=== PATIENT | female | born 1980 | race African-American/Black ===

== ENCOUNTER 2017-01-21 20:34 | Emergency (ER) | payer OTHER ==
[2017-01-21 21:16] VITALS: BMI 32.3
--- NOTE | 2017-01-21 22:14 | PDOC ---
[id number] 36 year old female with significant medical hx of recent hernia repair (approximately one month ago) who is presenting to the ED with nausea and abdominal pain for the past 24 hours. The patient complains of constant abdominal pain, the worst location at her naval, but also diffusely spread that is accompanied with some gas and nausea. She describes her pain as intense gas pain that feels as if she has to use the restroom but is unable to go. The patient denies any fever, chills, vomiting or diarrhea. Her last BM was this morning and it was reported normal. The patient had her hernia repair done at [facility]. She was given pain medication but states she hasnt taken it in a couple of weeks. Surgical Hx: , liposuction, hernia repair Social Hx: current tobacco smoker, occasional ETOH use <Rama Bravo - Last Filed: 01/21/17 23:53> <China Stout - Last Filed: 01/22/17 03:43> <Jorge Hough - Last Filed: 01/29/17 01:30> - General Chief Complaint: Pain Stated Complaint: ABDOMINAL PAIN Time Seen by Provider: 01/21/17 22:11 Past History <Rama Bravo - Last Filed: 01/21/17 23:53> <China Stout - Last Filed: 01/22/17 03:43> - Surgical History Abdominal Surgery: Yes (TUMMY ROSALVA/hernia repair 2016) - Psycho/Social/Smoking Cessation Hx Anxiety: No Suicidal Ideation: No Smoking History: Current every day smoker Have you smoked in the past 12 months: Yes Number of Cigarettes Smoked Daily: 5 Information on smoking cessation initiated: No Hx Alcohol Use: No Drug/Substance Use Hx: No Substance Use Type: None <Jorge Hough - Last Filed: 01/29/17 01:30> - Past Medical History Allergies/Adverse Reactions: Allergies Allergy/AdvReac Type Severity Reaction Status Date / Time No Known Allergies Allergy Verified 01/21/17 21:15 Home Medications: Ambulatory Orders Ibuprofen 800 mg PO TID #30 tablet 01/22/17 Oxycodone HCl/Acetaminophen [Percocet 5-325 mg Tablet] 1 - 2 tab PO Q6H #20 tablet MDD 4 01/22/17 Review of Systems - Review of Systems Comments:: 01/21/17 22:43 CONSTITUTIONAL: No fever, no chills, no fatigue EYES: No visual changes ENT: No ear pain, no sore throat CARDIOVASCULAR: No chest pain, no palpitations RESPIRATORY: No cough, no SOB GI: Abdominal pain, nausea. No vomiting, no constipation, no diarrhea GENITOURINARY: No dysuria, no frequency, no hematuria MUSKULOSKELETAL: No backpain, no joint pain, no myalgias SKIN: No rash NEURO: No headache <Rama Bravo - Last Filed: 01/21/17 23:53> *Physical Exam - Vital Signs Last Vital Signs Temp Pulse Resp BP Pulse Ox 98.3 F 95 H 21 138/75 98 01/21/17 21:13 01/21/17 21:13 01/21/17 21:13 01/21/17 21:13 01/21/17 21:13 - Physical Exam Comments: 01/21/17 23:54 CONSTITUTIONAL: Well-appearing; well-nourished; in no apparent distress HEAD: Normocephalic; atraumatic EYES: PERRL; EOM intact ENMT: External appears normal; normal oropharynx NECK: Supple; non-tender; no cervical lymphadenopathy CARD: Normal S1, S2; no murmurs, rubs, or gallops RESP: Normal chest excursion with respiration; breath sounds clear and equal bilaterally; no wheezes, rhonchi, or rales ABD: Mild periubmilical tenderness, distended, bowel sounds decreased; no palpable organomegaly EXT: Normal ROM in all four extremities; non-tender to palpation; distal pulses intact SKIN: Warm, dry, no rash NEURO: No focal neurological deficiencies. <Rama Bravo - Last Filed: 01/21/17 23:53> - Vital Signs Last Vital Signs Temp Pulse Resp BP Pulse Ox 98.3 F 95 H 21 138/75 98 01/21/17 21:13 01/21/17 21:13 01/21/17 21:13 01/21/17 21:13 01/21/17 21:13 <China Stout - Last Filed: 01/22/17 03:43> - Vital Signs Last Vital Signs Temp Pulse Resp BP Pulse Ox 98.3 F 95 H 21 138/75 98 01/21/17 21:13 01/21/17 21:13 01/21/17 21:13 01/21/17 21:13 01/21/17 21:13 <Jorge Hough - Last Filed: 01/29/17 01:30> ED Treatment Course - LABORATORY CBC & Chemistry Diagram: 01/21/17 22:30 01/21/17 22:30 <Rama Bravo - Last Filed: 01/21/17 23:53> - LABORATORY CBC & Chemistry Diagram: 01/21/17 22:30 01/21/17 22:30 - ADDITIONAL ORDERS Additional order review: Laboratory Results 01/21/17 01/21/17 01/21/17 23:30 22:30 22:30 INR Sodium 140 Potassium 4.2 Chloride 102 Carbon Dioxide 30 Anion Gap 8 BUN 13 Creatinine 0.9 Creat Clearance w eGFR > 60 Random Glucose 78 D Calcium 9.3 Total Bilirubin 0.4 D AST 14 L ALT 20 Alkaline Phosphatase 101 Total Protein 7.8 Albumin 4.0 Urine Color Straw Urine Appearance Clear Urine pH 6.0 Ur Specific Deputy 1.012 Urine Protein Negative Urine Glucose (UA) Negative Urine Ketones Negative Urine Blood Negative Urine Nitrite Negative Urine Bilirubin Negative Urine Urobilinogen Negative Ur Leukocyte Esterase Negative Urine HCG, Qual Negative Blood Type A POSITIVE Antibody Screen Negative 01/21/17 22:30 INR 1.03 Sodium Potassium Chloride Carbon Dioxide Anion Gap BUN Creatinine Creat Clearance w eGFR Random Glucose Calcium Total Bilirubin AST ALT Alkaline Phosphatase Total Protein Albumin Urine Color Urine Appearance Urine pH Ur Specific Deputy Urine Protein Urine Glucose (UA) Urine Ketones Urine Blood Urine Nitrite Urine Bilirubin Urine Urobilinogen Ur Leukocyte Esterase Urine HCG, Qual Blood Type Antibody Screen 01/21/17 22:30 RBC 5.03 MCV 83.7 MCHC 32.7 RDW 14.1 MPV 8.7 Neutrophils % 70.9 Lymphocytes % 21.6 D Monocytes % 5.7 Eosinophils % 1.4 D Basophils % 0.4 - RADIOLOGY Radiograph Interpretation: 01/22/17 03:43 Exam: Contrast-enhanced CT abdomen and pelvis Reviewed by Imaging artificial insemination technician: Findings: Breast implants are noted. The lung bases are clear. The upper abdominal viscera have a normal appearance. Slight nodular thickening of the left adrenal gland is noted. The adrenal glands are otherwise unremarkable. The kidneys have a normal appearance and enhance symmetrically. There is no evidence of urinary tract obstruction. The gastrointestinal tract does not appear obstructed. No thickened or dilated bowel is seen. The appendix has a normal appearance. There is no mesenteric infiltration. There is no free fluid. The uterus is in a neutral position. No adnexal masses are seen. The right adnexa is prominent with complex fluid seen in the adnexa and cul-de-sac tip within the result of a ruptured cyst. The urinary bladder is unremarkable. No abdominal or pelvic adenopathy is seen. No lytic or blastic destructive osseous lesions are seen. The patient appears to be status post abdominoplasty. Impression: Prominent right adnexa with complex fluid in the adnexa and cul-de-sac system with a ruptured hemorrhagic cyst. No inflammatory process identified in the abdomen or pelvis. No abdominal mass, adenopathy or collection seen. - Medications Given in the ED: ED Medications Discontinued Medications Generic Name Dose Route Start Last Admin Trade Name Freq PRN Reason Stop Dose Admin Acetaminophen 1,000 mg 01/21/17 22:25 01/21/17 23:04 Ofirmev Injection - IVPB 01/21/17 22:26 1,000 mg ONCE ONE Administration Hydromorphone HCl 0.5 mg 01/22/17 01:14 01/22/17 01:25 Dilaudid Injection - IVPB 01/22/17 01:15 0.5 mg ONCE ONE Administration Famotidine/Sodium Chloride 50 mls @ 100 mls/hr 01/21/17 22:25 01/21/17 23:04 Pepcid 20 Mg Premixed Ivpb - IVPB 01/21/17 22:54 100 mls/hr ONCE ONE Administration Sodium Chloride 1,000 mls @ 1,000 mls/hr 01/21/17 22:25 01/21/17 23:03 Normal Saline - IV 01/21/17 23:24 1,000 mls/hr ASDIR STA Administration <China Stout - Last Filed: 01/22/17 03:43> - LABORATORY CBC & Chemistry Diagram: 01/21/17 22:30 01/21/17 22:30 <Jorge Hough - Last Filed: 01/29/17 01:30> *DC/Admit/Observation/Transfer - Attestations Scribe Attestion: 01/21/17 22:45 Documentation prepared by Rama Bravo, acting as medical billing associate for Jorge Hough MD. <Rama Bravo - Last Filed: 01/21/17 23:53> <China Stout - Last Filed: 01/22/17 03:43> - Attestations Physician Attestion: 01/22/17 01:43 Patient is a 36-year-old female who presents with atraumatic periumbilical abdominal pain for weeks after undergoing umbilical hernia repair. In the ER, patient is awake and alert, with mild periumbilical tenderness to deep palpation without guarding or rebound. CBC reveals minimal leukocytosis with a normal differential. CMP is within normal limit. Urinalysis reveals no evidence of pyuria. Abdominal series x-ray reveals large amount of stool throughout the colon. Given persistent pain, will obtain CT with by mouth and IV contrast. If no evidence of acute pathology is noted, will discharge with surgical follow- up. Will endorse to Dr. carrera for final disposition. <Jorge Hough - Last Filed: 01/29/17 01:30> Diagnosis at time of Disposition: Ovarian cyst Qualifiers: Laterality: right Qualified Code(s): N83.201 - Unspecified ovarian cyst, right side - Discharge Dispostion Disposition: HOME Condition at time of disposition: Stable - Prescriptions Prescriptions: Ibuprofen 800 mg PO TID #30 tablet Oxycodone HCl/Acetaminophen [Percocet 5-325 mg Tablet] 1 - 2 tab PO Q6H #20 tablet MDD 4 - Referrals Referrals: Tobias Ozuna MD [Staff Physician] - - Patient Instructions Printed Discharge Instructions: DI for Ovarian Cyst
[2017-01-21] MEDS ORDERED: ACETAMINOPHEN 1000 MG/100 ML VIAL (NON FORMULARY) IVPB ONE (22:25)
[2017-01-21] MEDS ORDERED: SODIUM CHLORIDE 1,000 ML IV STA (22:25)
[2017-01-21] MEDS ORDERED: FAMOTIDINE 20 MG/50 ML IVPB 50 ML IVPB ONE ×2 (22:25→22:37)
[2017-01-21] MEDS ORDERED: ACETAMINOPHEN INJECTION 100 ML IVPB ONE (22:37)
[2017-01-21 23:23] LABS: BASOPHIL 0.4 % (0-2.0); EOSINOPHIL 1.4 % (0-4.5); MCH 27.4 pg (25.7-33.7); MCHC 32.7 g/dl (32.0-36.0); MEAN CELL VOLUME 83.7 fl (80-96); MEAN PLT VOLUME 8.7 fl (7.5-11.1); NEUTROPHILS 70.9 % (42.8-82.8); PLATELET COUNT 241 K/MM3 (134-434); RDW 14.1 % (11.6-15.6)
[2017-01-21 23:46] LABS: ANION GAP 8 (8-16); BILIRUBIN,TOTAL 0.4 mg/dL (0.2-1.0); CALCIUM 9.3 mg/dL (8.5-10.1); CO2 30 mmol/L (21-32); CREATININE 0.9 mg/dL (0.55-1.02); GLUCOSE,RANDOM 78 mg/dL (74-106); SGOT/AST 14 U/L (15-37); SGPT/ALT 20 U/L (12-78); TOT PROT 7.8 g/dl (6.4-8.2)
[2017-01-21 23:47] LABS: ALK PHOS 101 U/L (45-117)
[2017-01-22] LABS: URINE APPEARANCE CLEAR; URINE BILIRUBIN NEGATIVE (NEGATIVE); URINE BLOOD NEGATIVE (NEGATIVE); URINE COLOR STRAW; URINE GLUCOSE (UA) NEGATIVE (NEGATIVE); URINE KETONE NEGATIVE (NEGATIVE); URINE LEUK ESTERASE NEGATIVE (NEGATIVE); URINE NITRITE NEGATIVE (NEGATIVE); URINE PROTEIN NEGATIVE (NEGATIVE); URINE UROBILINOGEN NEGATIVE E.U./dl (0.2-1.0)
[2017-01-22 00:06] LABS: INR 1.03 (0.82-1.09); PROTHROMBIN TIME (PATIENT) 11.3 SEC (9.98-11.88)
[2017-01-22] MEDS ORDERED: HYDROmorphone HCL CARPU-JECT 1 MG/1 ML DISP.SYRIN IVPB ONE (01:14)
[2017-01-22] MEDS ORDERED: HYDROmorphone HCL CARPU-JECT 1 MG/1 ML DISP.SYRIN ONE ×2 (01:23→03:56)
[2017-01-22] MEDS ORDERED: KETOROLAC TROMETHAMINE 30 MG/1 ML VIAL IVPUSH ONE (03:50)
[2017-01-22] MEDS ORDERED: HYDROmorphone HCL CARPU-JECT 1 MG/1 ML DISP.SYRIN IVPUSH ONE (03:51)
[2017-01-22] MEDS ORDERED: KETOROLAC TROMETHAMINE 30 MG/1 ML VIAL ONE (03:56)
[2017-01-22 04:35] VITALS: BP 134/78; PULSE 84; TEMP 98.2
--- NOTE | 2017-01-22 05:53 | PDOC ---
*Physical Exam - Vital Signs Last Vital Signs Temp Pulse Resp BP Pulse Ox 98.2 F 84 16 134/78 97 01/22/17 04:05 01/22/17 04:05 01/22/17 04:05 01/22/17 04:05 01/22/17 04:05 ED Treatment Course - LABORATORY CBC & Chemistry Diagram: 01/21/17 22:30 01/21/17 22:30 - ADDITIONAL ORDERS Additional order review: Laboratory Results 01/21/17 01/21/17 01/21/17 23:30 22:30 22:30 INR Sodium 140 Potassium 4.2 Chloride 102 Carbon Dioxide 30 Anion Gap 8 BUN 13 Creatinine 0.9 Creat Clearance w eGFR > 60 Random Glucose 78 D Calcium 9.3 Total Bilirubin 0.4 D AST 14 L ALT 20 Alkaline Phosphatase 101 Total Protein 7.8 Albumin 4.0 Urine Color Straw Urine Appearance Clear Urine pH 6.0 Ur Specific [place] 1.012 Urine Protein Negative Urine Glucose (UA) Negative Urine Ketones Negative Urine Blood Negative Urine Nitrite Negative Urine Bilirubin Negative Urine Urobilinogen Negative Ur Leukocyte Esterase Negative Urine HCG, Qual Negative Blood Type A POSITIVE Antibody Screen Negative 01/21/17 22:30 INR 1.03 Sodium Potassium Chloride Carbon Dioxide Anion Gap BUN Creatinine Creat Clearance w eGFR Random Glucose Calcium Total Bilirubin AST ALT Alkaline Phosphatase Total Protein Albumin Urine Color Urine Appearance Urine pH Ur Specific [place] Urine Protein Urine Glucose (UA) Urine Ketones Urine Blood Urine Nitrite Urine Bilirubin Urine Urobilinogen Ur Leukocyte Esterase Urine HCG, Qual Blood Type Antibody Screen 01/21/17 22:30 RBC 5.03 MCV 83.7 MCHC 32.7 RDW 14.1 MPV 8.7 Neutrophils % 70.9 Lymphocytes % 21.6 D Monocytes % 5.7 Eosinophils % 1.4 D Basophils % 0.4 - Medications Given in the ED: ED Medications Discontinued Medications Generic Name Dose Route Start Last Admin Trade Name Freq PRN Reason Stop Dose Admin Acetaminophen 1,000 mg 01/21/17 22:25 01/21/17 23:04 Ofirmev Injection - IVPB 01/21/17 22:26 1,000 mg ONCE ONE Administration Hydromorphone HCl 0.5 mg 01/22/17 01:14 01/22/17 01:25 Dilaudid Injection - IVPB 01/22/17 01:15 0.5 mg ONCE ONE Administration Hydromorphone HCl 1 mg 03/23/17 03:51 01/22/17 03:55 Dilaudid Injection - IVPUSH 01/22/17 03:52 1 mg ONCE ONE Administration Famotidine/Sodium Chloride 50 mls @ 100 mls/hr 01/21/17 22:25 01/21/17 23:04 Pepcid 20 Mg Premixed Ivpb - IVPB 01/21/17 22:54 100 mls/hr ONCE ONE Administration Sodium Chloride 1,000 mls @ 1,000 mls/hr 01/21/17 22:25 01/21/17 23:03 Normal Saline - IV 01/21/17 23:24 1,000 mls/hr ASDIR STA Administration Ketorolac Tromethamine 30 mg 01/22/17 03:50 01/22/17 03:55 Toradol Injection - IVPUSH 01/22/17 03:51 30 mg ONCE ONE Administration *DC/Admit/Observation/Transfer Diagnosis at time of Disposition: Ovarian cyst Qualifiers: Laterality: right Qualified Code(s): N83.201 - Unspecified ovarian cyst, right side - Discharge Dispostion Disposition: HOME Condition at time of disposition: Stable Admit: No - Prescriptions Prescriptions: Ibuprofen 800 mg PO TID #30 tablet Oxycodone HCl/Acetaminophen [Percocet 5-325 mg Tablet] 1 - 2 tab PO Q6H #20 tablet MDD 4 - Referrals Referrals: Tobias Ozuna MD [Staff Physician] - - Patient Instructions Printed Discharge Instructions: DI for Ovarian Cyst
== END 2017-01-22 06:13 | disposition home or self-care (01) ==
LOC: JER 20:34 → SUPCPDRO 20:34 → JER 01-22 06:13
PROC: 3E033NZ Introduction of Analgesics, Hypnotics, Sedatives into Peripheral Vein, Percutaneous Approach (ICD-10-PCS; principal; 2017-01-21)
PROC: 3E033GC Introduction of Other Therapeutic Substance into Peripheral Vein, Percutaneous Approach (ICD-10-PCS; 2017-01-21)
PROC: 3E0333Z Introduction of Anti-inflammatory into Peripheral Vein, Percutaneous Approach (ICD-10-PCS; 2017-01-21)
PROC: 3E0337Z Introduction of Electrolytic and Water Balance Substance into Peripheral Vein, Percutaneous Approach (ICD-10-PCS; 2017-01-21)
DX: N83.201 Unspecified ovarian cyst, right side (principal); F17.210 Nicotine dependence, cigarettes, uncomplicated
CPT/HCPCS: 36415; 74020-TC; 74177-TC; 80053; 81003; 84703; 85025; 85610; 86850; 86900; 86901; 87086; 99283-25

== ENCOUNTER 2018-07-07 03:38 | Emergency (ER) | payer OTHER ==
[2018-07-07 05:13] VITALS: BP 130/81; PULSE 64; TEMP 99.3; BMI 34.9
[2018-07-07] MEDS ORDERED: IBUPROFEN 600 MG TABLET (FP) PO ONE ×2 (06:18→06:51)
--- NOTE | 2018-07-07 06:29 | PDOC ---
History of Present Illness <Vanita Colin - Last Filed: 07/07/18 07:51> - General History Source: Patient - History of Present Illness Initial Comments: 07/07/18 06:53 37 year old Complaining of left knee pain reports that she twisted knee as she fell on to the ground. Patient is able to leg raise, difficulty with weightbearing. No deformity noted point tenderness to the lateral inner aspect of the knee. No past medical history <Magnolia Cano - Last Filed: 07/08/18 04:54> <Layla Lacy - Last Filed: 07/10/18 07:18> - General Chief Complaint: Pain Stated Complaint: PAIN,SWELLING LT KNEE Time Seen by Provider: 07/07/18 05:49 Past History <Vanita Colin - Last Filed: 07/07/18 07:51> - Past Medical History COPD: No - Surgical History Abdominal Surgery: Yes (TUMMY TUCK/hernia repair 2017) - Suicide/Smoking/Psychosocial Hx Smoking History: Current every day smoker Have you smoked in the past 12 months: Yes Number of Cigarettes Smoked Daily: 6 Information on smoking cessation initiated: No Hx Alcohol Use: No Drug/Substance Use Hx: No Substance Use Type: None <Magnolia Cano - Last Filed: 07/08/18 04:54> <Layla Lacy - Last Filed: 07/10/18 07:18> - Past Medical History Allergies/Adverse Reactions: Allergies Allergy/AdvReac Type Severity Reaction Status Date / Time No Known Allergies Allergy Verified 07/07/18 04:59 Home Medications: Ambulatory Orders NK [No Known Home Medication] 04/19/18 Review of Systems - Review of Systems Able to Perform ROS?: Yes Is the patient limited Korean proficient: No Musculoskeletal: Yes: Other (knee pain) <Magnolia Cano - Last Filed: 07/08/18 04:54> *Physical Exam - Vital Signs Last Vital Signs Temp Pulse Resp BP Pulse Ox 99.3 F 64 20 130/81 98 07/07/18 04:59 07/07/18 04:59 07/07/18 04:59 07/07/18 04:59 07/07/18 04:59 <Vanita Colin - Last Filed: 07/07/18 07:51> - Vital Signs Last Vital Signs Temp Pulse Resp BP Pulse Ox 99.3 F 64 20 130/81 98 07/07/18 04:59 07/07/18 04:59 07/07/18 04:59 07/07/18 04:59 07/07/18 04:59 - Physical Exam General Appearance: Yes: Appropriately Dressed Musculoskeletal: positive: Normal Inspection, Decreased Range of Motion, Other ( able to leg raise) Extremity: positive: Normal Capillary Refill, Normal Inspection, Normal Range of Motion Integumentary: positive: Normal Color, Dry, Warm Neurologic: positive: Fully Oriented, Alert <Magnolia Cano - Last Filed: 07/08/18 04:54> - Vital Signs Last Vital Signs Temp Pulse Resp BP Pulse Ox 99.3 F 64 20 130/81 98 07/07/18 04:59 07/07/18 04:59 07/07/18 04:59 07/07/18 04:59 07/07/18 04:59 <Layla Lacy - Last Filed: 07/10/18 07:18> ED Treatment Course - ADDITIONAL ORDERS Additional order review: Laboratory Results 07/07/18 06:20 Urine HCG, Qual Negative - Medications Given in the ED: ED Medications Discontinued Medications Generic Name Dose Route Start Last Admin Trade Name Freq PRN Reason Stop Dose Admin Ibuprofen 600 mg 07/07/18 06:18 07/07/18 06:20 Motrin - PO 07/07/18 06:19 600 mg ONCE ONE Administration <Vanita Colin - Last Filed: 07/07/18 07:51> - RADIOLOGY Radiology Studies Ordered: Category Date Time Status KNEE 3 POS-LEFT [RAD] Stat Radiology 07/07/18 05:56 Ordered <Magnolia Cano - Last Filed: 07/08/18 04:54> - Medications Given in the ED: ED Medications Discontinued Medications Generic Name Dose Route Start Last Admin Trade Name Freq PRN Reason Stop Dose Admin Ibuprofen 600 mg 07/07/18 06:18 07/07/18 06:20 Motrin - PO 07/07/18 06:19 600 mg ONCE ONE Administration <Layla Lacy - Last Filed: 07/10/18 07:18> Progress Note - Progress Note Progress Note: A: left knee pain P: urine xray pain control patient signed out to Allie DOUGHERTY. pending Xray <Magnolia Cano - Last Filed: 07/08/18 04:54> Medical Decision Making - Medical Decision Making 07/07/18 07:44 Knee xray read as neg for fx or acute pathology. However, there is mention of possible foreign body at site of proximal tibia. Patient has no open wounds at this time and denies any history of any previous history of knee/leg trauma or foreign body. Kody placed as pt reports pain w/ knee extension. Crutches given. Dc to take Motrin [id number] as needed and follow up with orthopedic if pain persists after 2 weeks 07/07/18 07:51 <Vanita Colin - Last Filed: 07/07/18 07:51> - Medical Decision Making The patient was seen and evaluated in conjunction with midlevel provider under my direct supervision, ancillary studies were reviewed. I agree with the plan as outlined by FARHAT Cano 07/10/18 07:18 <Layla Lacy - Last Filed: 07/10/18 07:18> *DC/Admit/Observation/Transfer <Vanita Colin - Last Filed: 07/07/18 07:51> <Magnolia Cano - Last Filed: 07/08/18 04:54> <Layla Lacy - Last Filed: 07/10/18 07:18> Diagnosis at time of Disposition: Knee sprain Qualifiers: Encounter type: initial encounter Involved ligament of knee: unspecified ligament Laterality: right Qualified Code(s): S83.91XA - Sprain of unspecified site of right knee, initial encounter - Discharge Dispostion Disposition: HOME Condition at time of disposition: Improved - Referrals Referrals: Christiane Rahman [Primary Care Provider] - Riley Posada MD [Staff Physician] - Call tomorrow - Patient Instructions Printed Discharge Instructions: DI for Knee Pain, How to Use a Knee Immobilizer Additional Instructions: Rest, elevate extremity, use kody and ice for swelling as discussed. Take 800mg motrin or 650mg tylenol as needed for pain If pain persists after 2 weeks, please follow up with orthopedics - Post Discharge Activity Forms/Work/School Notes: Back to Work
== END 2018-07-07 09:10 | disposition home or self-care (01) ==
LOC: JER 03:38
DX: S83.8X1A Sprain of other specified parts of right knee, initial encounter (principal); W18.39XA Other fall on same level, initial encounter; Y93.89 Activity, other specified; Y92.89 Other specified places as the place of occurrence of the external cause; Y99.8 Other external cause status
CPT/HCPCS: 73562-TC-LT-FY; 84703; 99281-25

== ENCOUNTER 2019-05-18 03:42 | Emergency (ER) | payer OTHER ==
[2019-05-18 04:42] VITALS: TEMP 98.3; BMI 36.0
--- NOTE | 2019-05-18 04:50 | PDOC ---
*Physical Exam - Vital Signs Last Vital Signs Temp Pulse Resp BP Pulse Ox 98.3 F 101 H 16 142/88 97 05/18/19 03:50 05/18/19 03:50 05/18/19 03:50 05/18/19 03:50 05/18/19 03:50 Medical Decision Making - Medical Decision Making 05/18/19 04:50 Patient seen by the advanced practice provider under my direct supervision. Ancillary testing reviewed as necessary. I agree with plan as outlined by the advanced practice provider. *DC/Admit/Observation/Transfer Diagnosis at time of Disposition: Polysubstance abuse Head trauma Qualifiers: Encounter type: initial encounter Qualified Code(s): S09.90XA - Unspecified injury of head, initial encounter - Discharge Dispostion Condition at time of disposition: Fair - Referrals - Patient Instructions - Post Discharge Activity
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
--- NOTE | 2019-05-18 07:23 | PDOC ---
*Physical Exam - Vital Signs Last Vital Signs Temp Pulse Resp BP Pulse Ox 98.3 F 101 H 16 142/88 97 05/18/19 03:50 05/18/19 03:50 05/18/19 03:50 05/18/19 03:50 05/18/19 03:50 - Physical Exam General Appearance: Yes: Nourished, Appropriately Dressed, Other (sleeping). No : Apparent Distress HEENT: positive: EOMI, CEM Integumentary: positive: Dry, Warm, Bruising (l eye) Medical Decision Making - Medical Decision Making 05/18/19 10:17 [facility] called. No female beds at this time Waiting to hear back from other facilities. 05/18/19 12:24 Unable to get in touch with [facility] Social work counceled patient extensivkarl for other rehab facilities Pt understands she needs to f/u on her own DC home with return precautions I discussed the physical exam findings, ancillary test results and final diagnoses with the patient. I answered all of the patient's questions. The patient was satisfied with the care received and felt comfortable with the discharge plan and treatment plan. The Patient agrees to follow up with the primary care physician/specialist within 24-72 hours. Return precautions were given. *DC/Admit/Observation/Transfer Diagnosis at time of Disposition: Polysubstance abuse Head trauma Qualifiers: Encounter type: initial encounter Qualified Code(s): S09.90XA - Unspecified injury of head, initial encounter Facial trauma Qualifiers: Encounter type: initial encounter Qualified Code(s): S09.93XA - Unspecified injury of face, initial encounter - Discharge Dispostion Disposition: HOME Condition at time of disposition: Fair Decision to Admit order: No - Referrals - Patient Instructions Printed Discharge Instructions: DI for Closed Head Injury Additional Instructions: Your CT scans were negative today for broken bones You may take Tylenol 650mg every 4 hours as needed for pain Follow up with the rehab clinics given to you for further management. Avoid drugs and alcohol Return to the ER for worsening pain, dizziness, visual changes or if you have any changes in your symptoms - Post Discharge Activity
[2019-05-18 07:50] LABS: COCAINE, UR NEGATIVE ng/ml (CUTOFF=300); OPIATES, URI NEGATIVE ng/ml (CUTOFF=300); URINE AMPHETAMINES NEGATIVE ng/ml (CUTOFF=500); URINE BARBITURATES NEGATIVE ng/ml (CUTOFF=200); URINE BENZODIAZEPINES NEGATIVE ng/ml (CUTOFF=200)
[2019-05-18 07:51] LABS: PHENCYCLIDINE,URINE POSITIVE ng/ml (CUTOFF=25)
[2019-05-18 07:52] LABS: METHADONE, UR NEGATIVE ng/ml (CUTOFF=300)
[2019-05-18 07:54] LABS: HCG,QUALITATIVE URINE NEGATIVE
[2019-05-18 07:57] LABS: EPI CELLS 6.5 /HPF (0-5/HPF); HYALINE CASTS 25 /lpf (0-8); PH,URINE 5.5 (5.0-8.0); URINE APPEARANCE TURBID; URINE BACTERIA 119.7 /hpf (NEGATIVE); URINE BILIRUBIN NEGATIVE (NEGATIVE); URINE COLOR YELLOW; URINE GLUCOSE (UA) NEGATIVE (NEGATIVE); URINE KETONE TRACE (NEGATIVE); URINE LEUK ESTERASE NEGATIVE (NEGATIVE); URINE NITRITE NEGATIVE (NEGATIVE); URINE PROTEIN 2+ (NEGATIVE); URINE RBC 3 /hpf (0-4); URINE WBC 7 /hpf (0-5)
[2019-05-18] MEDS ORDERED: ACETAMINOPHEN 325 MG TABLET (FP) PO ONE (09:27)
[2019-05-18] MEDS ORDERED: ACETAMINOPHEN 325 MG TABLET (FP) ONE (10:02)
[2019-05-18 11:09] VITALS: BP 125/82; PULSE 87
== END 2019-05-18 12:30 | disposition home or self-care (01) ==
LOC: JER 03:42
DX: S09.90XA Unspecified injury of head, initial encounter (principal); S09.93XA Unspecified injury of face, initial encounter; F19.10 Other psychoactive substance abuse, uncomplicated; F17.210 Nicotine dependence, cigarettes, uncomplicated
CPT/HCPCS: 70450-TC; 70486-TC; 80307; 81003; 84703; 99282-25

== ENCOUNTER 2022-08-06 17:56 | Emergency (ER) | payer OTHER ==
[2022-08-06] MEDS ORDERED: ACETAMINOPHEN 500 MG TABLET (FP) PO ONE (18:22)
[2022-08-06] MEDS ORDERED: ACETAMINOPHEN 325 MG TABLET (FP) ONE (18:24)
[2022-08-06 18:27] VITALS: BP 121/80; PULSE 81; RESP 20; TEMP 98.3; BMI 23.5
[2022-08-06] MEDS ORDERED: KETOROLAC TROMETHAMINE 15 MG/ML VIAL IVPUSH ONE (21:41)
[2022-08-06] MEDS ORDERED: KETOROLAC TROMETHAMINE 15 MG/ML VIAL ONE (22:03)
== END 2022-08-07 00:32 | disposition home or self-care (01) ==
LOC: JER 17:56
PROC: 3E0333Z Introduction of Anti-inflammatory into Peripheral Vein, Percutaneous Approach (ICD-10-PCS; principal; 2022-08-06)
DX: M54.50 Low back pain, unspecified (principal); M54.2 Cervicalgia; W20.8XXA Other cause of strike by thrown, projected or falling object, initial encounter
CPT/HCPCS: 70450-TC; 72125-TC; 72128-TC; 72131-TC; 99285-25